=== PATIENT | female | born 1965 | race American Indian/Alaskan Native ===

== ENCOUNTER 2017-07-13 13:14 | Inpatient (IN) | payer BC ==
[2017-07-13] VITALS (7 sets, daily range): BP systolic 135–170; BP diastolic 83–105
[~2017-07-13] VITALS: Ht 165.1 cm; Wt 117.0 kg
[2017-07-13] MEDS ORDERED: SODIUM CHLORIDE FLUSH 10ML SYR IVF ONE (13:30)
[2017-07-13] MEDS ORDERED: ONDANSETRON 2MG/ML, 2ML IVPush ONE (13:30)
[2017-07-13] MEDS ORDERED: MORPHINE SULFATE 4 MG/ML, 1ML IVPush PRN (13:30)
[2017-07-13] MEDS ORDERED: NITR0.4T28 SL (13:55)
[2017-07-13] MEDS ORDERED: PRAV40TA2 PO (13:56)
[2017-07-13] MEDS ORDERED: METO25TA91 PO (13:56)
[2017-07-13] MEDS ORDERED: LOSA50TA6 PO (13:57)
[2017-07-13] MEDS ORDERED: CLOP75TA PO (13:57)
[2017-07-13] MEDS ORDERED: ASPI-515 PO (13:58)
[2017-07-13] MEDS ORDERED: PLEASE ENTER ALLERGIES MC SCH ×2 (14:00)
[2017-07-13 14:06] LABS: IS PT STATUS REG ER OR PRE ER? YES
[2017-07-13] MEDS ORDERED: HEPARIN 5,000 UNITS/ML, 1ML ONE (14:25)
[2017-07-13] MEDS ORDERED: SODIUM CHLORIDE FLUSH 10ML SYR IVF PRN (14:30)
[2017-07-13] MEDS ORDERED: HEPARIN 5,000 UNITS/ML, 1ML IV PRN (14:30)
[2017-07-13] MEDS ORDERED: HEPARIN 5,000 UNITS/ML, 1ML IV ONE (14:30)
[2017-07-13] MEDS ORDERED: HEPARIN 25,000 UNITS/500ML PMX 500 ML IV PRN (14:30)
[2017-07-13] MEDS ORDERED: HEPARIN 25,000 UNITS/500ML PMX 500 ML ONE (14:37)
[2017-07-13] MEDS ORDERED: NITROGLYCERIN 0.4 MG/SPRAY SL PRN (15:30)
[2017-07-13] MEDS ORDERED: ACETAMINOPHEN 650 MG/20.3 ML UDC PO PRN (15:30)
[2017-07-13] MEDS ORDERED: NITROGLYCERIN SINGLE TAB 0.4 MG SL PRN (15:30)
[2017-07-13] MEDS ORDERED: FENTANYL PF 100 MCG/2ML ONE (15:48)
[2017-07-13] MEDS ORDERED: VERAPAMIL 2.5 MG/ML, 2ML ONE (15:48)
[2017-07-13] MEDS ORDERED: TICAGRELOR 90 MG TABLET ONE (15:48)
[2017-07-13] MEDS ORDERED: LIDOCAINE 2%, 20ML ONE (15:48)
[2017-07-13] MEDS ORDERED: HEPARIN 1,000 UNITS/ML, 10ML ONE (15:48)
[2017-07-13] MEDS ORDERED: BIVALIRUDIN 250 MG ONE (15:48)
[2017-07-13] MEDS ORDERED: MIDAZOLAM 1 MG/ML, 5ML ONE (15:48)
[2017-07-13] MEDS: INSULIN ASPART 100 UNITS/ML, PEN SQ-INSULIN SCH ×2 (16:00→21:00)
[2017-07-13 16:05] LABS: HEMATOCRIT 42.4 % (34.6-47.8); HEMOGLOBIN 14.2 g/dL (11.7-16.4); WHITE BLOOD COUNT 8.7 x10^3/uL (3.4-10)
[2017-07-13 16:08] LABS: ASPARTATE AMINO TRANSFERASE 68 U/L (15-37); BLOOD UREA NITROGEN 8 mg/dL (7-18)
[2017-07-13] MEDS: SODIUM CHLORIDE 0.9% 1,000 ML IV SCH ×2 (16:53→23:37)
[2017-07-13] MEDS ORDERED: HEPARIN DRIP MC SCH (17:00)
[2017-07-13] MEDS ORDERED: ACETAMINOPHEN 325 MG TABLET ONE (17:22)
[2017-07-13] MEDS ORDERED: ALBUTEROL SULFATE 2.5 MG/3 ML NPPB PRN (18:00)
[2017-07-13] MEDS: SODIUM CHLORIDE FLUSH 10ML SYR IVF SCH (21:00)
[2017-07-13] MEDS: NITROGLYCERIN 0.4 MG BOTTLE (25 TABS) SL PRN ×3 (22:04→22:17)
[2017-07-14] MEDS: ONDANSETRON 2MG/ML, 2ML IVP PRN ×2 (01:53→13:57)
[2017-07-14 03:09] VITALS: BP 146/88
[2017-07-14] MEDS: ASPIRIN 325 MG TABLET EC PO SCH (05:05)
[2017-07-14 05:14] LABS: HEMATOCRIT 42.5 % (34.6-47.8); HEMOGLOBIN 14.4 g/dL (11.7-16.4); WHITE BLOOD COUNT 8.5 x10^3/uL (3.4-10)
[2017-07-14 05:23] LABS: BLOOD UREA NITROGEN 8 mg/dL (7-18)
[2017-07-14] MEDS ORDERED: ASPIRIN 325 MG TABLET EC PO SCH (06:00)
[2017-07-14] MEDS: INSULIN ASPART 100 UNITS/ML, PEN SQ-INSULIN SCH ×4 (07:00→21:00)
[2017-07-14] MEDS: SODIUM CHLORIDE 0.9% 1,000 ML IV SCH ×2 (07:37→13:53)
[2017-07-14 08:20] VITALS: BP 159/91
[2017-07-14] MEDS: ISOSORBIDE MONONITRATE ER 30 MG TABLET PO SCH (09:52)
[2017-07-14] MEDS: SODIUM CHLORIDE FLUSH 10ML SYR IVF SCH ×2 (09:52→21:51)
[2017-07-14] MEDS: CLOPIDOGREL 75 MG TABLET PO SCH (09:52)
[2017-07-14] MEDS ORDERED: LISINOPRIL 5 MG TABLET PO SCH (10:00)
[2017-07-14] MEDS ORDERED: MAALOX/HYOSCYAMINE/LIDOCAINE 45 ML BTL PO ONE (10:30)
[2017-07-14 10:37] LABS: IS PT STATUS REG ER OR PRE ER? NO
[2017-07-14] MEDS: AMLODIPINE 5 MG TABLET PO SCH (11:49)
[2017-07-14] MEDS: LOSARTAN 25MG TABLET PO SCH (11:49)
[2017-07-14] MEDS ORDERED: KETOROLAC 30 MG/1 ML ONE (14:01)
[2017-07-14 14:20] VITALS: BP 143/84
[2017-07-14] MEDS: KETOROLAC 30 MG/1 ML IVPush PRN (14:20)
[2017-07-14] MEDS: ENOXAPARIN 40 MG/0.4 ML SQ SCH (21:50)
[2017-07-14] MEDS: ATORVASTATIN 20 MG TABLET PO SCH (21:50)
[2017-07-14 21:51] VITALS: BP 143/83
[2017-07-15 00:38] VITALS: BP 156/97
[2017-07-15] MEDS: ONDANSETRON 2MG/ML, 2ML IVP PRN ×3 (00:40→14:38)
[2017-07-15] MEDS: KETOROLAC 30 MG/1 ML IVPush PRN ×3 (00:47→21:54)
[2017-07-15] MEDS: ASPIRIN 325 MG TABLET EC PO SCH (05:59)
[2017-07-15] MEDS: INSULIN ASPART 100 UNITS/ML, PEN SQ-INSULIN SCH ×4 (07:00→21:00)
[2017-07-15 07:42] VITALS: BP 139/83
[2017-07-15] MEDS: SODIUM CHLORIDE FLUSH 10ML SYR IVF SCH ×2 (08:24→21:54)
[2017-07-15] MEDS: AMLODIPINE 5 MG TABLET PO SCH (08:24)
[2017-07-15] MEDS: ISOSORBIDE MONONITRATE ER 30 MG TABLET PO SCH (08:24)
[2017-07-15] MEDS: CLOPIDOGREL 75 MG TABLET PO SCH (08:24)
[2017-07-15] MEDS: LOSARTAN 25MG TABLET PO SCH (08:25)
[2017-07-15] MEDS ORDERED: SODIUM CHLORIDE 0.9%, 250ML IVBOLUS ONE (11:00)
[2017-07-15] MEDS: POTASSIUM CHLORIDE 30 MEQ in SODIUM CHLORIDE 0.9% 1,000 ML IV SCH ×2 (11:13→22:01)
[2017-07-15 14:35] VITALS: BP 147/87
[2017-07-15] MEDS: METOPROLOL SUCCINATE 25 MG TAB.ER.24H PO SCH (17:36)
[2017-07-15 18:32] VITALS: BP 142/83
[2017-07-15] MEDS: ENOXAPARIN 40 MG/0.4 ML SQ SCH (21:53)
[2017-07-15] MEDS: ATORVASTATIN 20 MG TABLET PO SCH (21:54)
[2017-07-16 04:23] VITALS: BP 127/55
[2017-07-16 04:42] LABS: HEMATOCRIT 40.7 % (34.6-47.8); HEMOGLOBIN 13.8 g/dL (11.7-16.4); WHITE BLOOD COUNT 8.2 x10^3/uL (3.4-10)
[2017-07-16 04:59] LABS: ASPARTATE AMINO TRANSFERASE 119 U/L (15-37); BLOOD UREA NITROGEN 9 mg/dL (7-18)
[2017-07-16] MEDS: CLOPIDOGREL 75 MG TABLET PO SCH (07:53)
[2017-07-16] MEDS: INSULIN ASPART 100 UNITS/ML, PEN SQ-INSULIN SCH ×3 (07:53→16:04)
[2017-07-16] MEDS: SODIUM CHLORIDE FLUSH 10ML SYR IVF SCH ×2 (07:53→20:49)
[2017-07-16] MEDS: POTASSIUM CHLORIDE 30 MEQ in SODIUM CHLORIDE 0.9% 1,000 ML IV SCH (07:53)
[2017-07-16] MEDS: AMLODIPINE 5 MG TABLET PO SCH (07:54)
[2017-07-16] MEDS: ISOSORBIDE MONONITRATE ER 30 MG TABLET PO SCH (07:54)
[2017-07-16] MEDS: ASPIRIN 81 MG TABLET EC PO SCH (07:54)
[2017-07-16] MEDS: LOSARTAN 25MG TABLET PO SCH (07:54)
[2017-07-16 10:27] VITALS: BP 130/73
[2017-07-16 13:39] VITALS: BP 138/80
[2017-07-16 18:16] VITALS: BP 150/92
[2017-07-16] MEDS: METOPROLOL SUCCINATE 25 MG TAB.ER.24H PO SCH (18:16)
[2017-07-16 19:19] VITALS: BP 122/77
[2017-07-16] MEDS: ATORVASTATIN 20 MG TABLET PO SCH (20:49)
[2017-07-16] MEDS: ENOXAPARIN 40 MG/0.4 ML SQ SCH (20:49)
[2017-07-17 03:01] VITALS: BP 120/80
[2017-07-17 05:57] LABS: HEMATOCRIT 41.1 % (34.6-47.8); HEMOGLOBIN 13.9 g/dL (11.7-16.4); WHITE BLOOD COUNT 8.6 x10^3/uL (3.4-10)
[2017-07-17 06:18] LABS: BLOOD UREA NITROGEN 9 mg/dL (7-18)
[2017-07-17] MEDS: ISOSORBIDE MONONITRATE ER 30 MG TABLET PO SCH (08:26)
[2017-07-17 08:40] VITALS: BP 133/83
[2017-07-17] MEDS: ASPIRIN 81 MG TABLET EC PO SCH (08:43)
[2017-07-17] MEDS: CLOPIDOGREL 75 MG TABLET PO SCH (08:43)
[2017-07-17] MEDS: AMLODIPINE 5 MG TABLET PO SCH (08:43)
[2017-07-17] MEDS: LOSARTAN 25MG TABLET PO SCH (08:43)
[2017-07-17] MEDS: SODIUM CHLORIDE FLUSH 10ML SYR IVF SCH (08:43)
[2017-07-17 13:46] VITALS: BP 130/82
[2017-07-17] MEDS ORDERED: LOSA25TA2 PO (15:30)
[2017-07-17] MEDS ORDERED: AMLO5TAB2 PO (15:30)
== END 2017-07-17 17:06 | disposition home or self-care (01) | DRG 280 ==
LOC: ED 13:58 → EDIP 14:15 → 5SO 16:07 → DCLOUNGE 07-17 16:21
PROVIDERS: ADMIT Hospitalist; ATTEND Internal Medicine
PROC: 4A023N7 Measurement of Cardiac Sampling and Pressure, Left Heart, Percutaneous Approach (ICD-10-PCS; principal; 2017-07-13)
PROC: B2111ZZ Fluoroscopy of Multiple Coronary Arteries using Low Osmolar Contrast (ICD-10-PCS; 2017-07-13)
PROC: B2151ZZ Fluoroscopy of Left Heart using Low Osmolar Contrast (ICD-10-PCS; 2017-07-13)
DX: I21.4 Non-ST elevation (NSTEMI) myocardial infarction (principal); I50.31 Acute diastolic (congestive) heart failure; Z68.41 Body mass index [BMI] 40.0-44.9, adult; E66.9 Obesity, unspecified; I11.0 Hypertensive heart disease with heart failure; E74.39 Other disorders of intestinal carbohydrate absorption; E78.5 Hyperlipidemia, unspecified; E87.6 Hypokalemia; G43.909 Migraine, unspecified, not intractable, without status migrainosus; I25.10 Atherosclerotic heart disease of native coronary artery without angina pectoris; J45.909 Unspecified asthma, uncomplicated; R73.9 Hyperglycemia, unspecified; I25.2 Old myocardial infarction; Z90.710 Acquired absence of both cervix and uterus; Z88.6 Allergy status to analgesic agent; Z79.02 Long term (current) use of antithrombotics/antiplatelets; Z79.82 Long term (current) use of aspirin; Z79.899 Other long term (current) drug therapy; T46.3X5A Adverse effect of coronary vasodilators, initial encounter; Y92.89 Other specified places as the place of occurrence of the external cause
CPT/HCPCS: 36415; 71010; 80048; 80053; 80061; 82962; 83036; 83735; 84100; 84484; 85025; 85520; 93005; 93306; 93458; 96374; 99156; C1894; J0583; J1644; J1650; J1885; J2250; J2405; J3010; J3480; J3490; J7030; J7050; Q9967